=== PATIENT | female | born 1945 | race Caucasian/White ===

== ENCOUNTER 2019-11-13 08:42 | Day surgery (SDC) | payer BC ==
[~2019-11-13] VITALS: Ht 160 cm; Wt 75.3 kg
[~2019-11-13 08:42] MED LIST: ACET-1158 PO; ATOR10TA52 PO; B-COCAP34 PO; IPRA0.03; LEVO88TA4 PO; OMEP20TA PO
[2019-11-13] MEDS ORDERED: ceFAZolin 1GM/50ML 50 ML IV ONE (09:01)
[2019-11-13 09:39] LABS: INR 0.98 (0.9-1.15); Partial Thromboplastin Time 25.8 sec (23.64-32.05)
[2019-11-13] MEDS ORDERED: BUPIVACAINE HCL 0 ML ONE (09:46)
[2019-11-13] MEDS ORDERED: LIDOCAINE 1% HCL (LOCAL ANESTH.) INJ 20ML MDV ONE (09:46)
[2019-11-13] MEDS ORDERED: MIDAZOLAM HCL 1MG/1ML-2 ML VIAL ONE ×2 (10:12→10:42)
[2019-11-13] MEDS ORDERED: fentaNYL CITRATE 100 MCG/2 ML VL ONE ×2 (10:12→10:52)
[2019-11-13] MEDS ORDERED: ONDANSETRON HCL 4 MG/2 ML VIAL ONE (10:12)
[2019-11-13] MEDS ORDERED: PROPOFOL 10 MG/ML 20 ML IV ONE ×2 (10:12→10:45)
[2019-11-13] MEDS ORDERED: BUPIVACAINE 0.25% INJ 50ML VIAL ONE (10:36)
[2019-11-13] MEDS ORDERED: LIDOCAINE 1% (LOCAL ANESTH.) PF 5ml SDV ONE (10:39)
[2019-11-13] MEDS ORDERED: SUCCINYLCHOLINE CHLORIDE 20 MG/ML 10ML VIAL IV ONE (10:39)
[2019-11-13] MEDS ORDERED: METOCLOPRAMIDE HCL 5MG/ml INJ 2ml VIAL ONE (10:43)
[2019-11-13] MEDS ORDERED: ROCURONIUM 10MG/ML 10ML VIAL IV ONE (10:46)
[2019-11-13] MEDS ORDERED: NEOSTIGMINE 1 MG/ML INJ (10mg/10ML VIAL) ONE (11:04)
[2019-11-13] MEDS ORDERED: GLYCOPYRROLATE 0.2 MG/ML 1ML VIAL ONE (11:04)
[2019-11-13] MEDS ORDERED: NALOXONE HCL 0.4 MG/ML VIAL IV PRN (11:15)
[2019-11-13] MEDS ORDERED: ACCU-CHEK COMFORT CURVE STRIP VI ONE (11:15)
[2019-11-13] MEDS ORDERED: ONDANSETRON HCL 4 MG/2 ML VIAL IV PRN (11:15)
[2019-11-13] MEDS ORDERED: HYDROmorphone HCL 2 MG/ML VL IV PRN (11:15)
[2019-11-13 12:01] VITALS: BP 128/71
== END 2019-11-13 13:08 | disposition home or self-care (01) ==
LOC: SUR 08:42
PROVIDERS: ATTEND Orthopaedic Surgery Adult Reconstructive Orthopaedic Surgery
DX: M65.331 Trigger finger, right middle finger (principal); G47.33 Obstructive sleep apnea (adult) (pediatric); E11.22 Type 2 diabetes mellitus with diabetic chronic kidney disease; N18.3 Chronic kidney disease, stage 3 (moderate); K21.9 Gastro-esophageal reflux disease without esophagitis; G89.29 Other chronic pain; Z88.6 Allergy status to analgesic agent; Z88.5 Allergy status to narcotic agent; Z98.890 Other specified postprocedural states; Z79.899 Other long term (current) drug therapy; Z11.59 Encounter for screening for other viral diseases
CPT/HCPCS: 26055; 36415; 82962; 85610; 85730; J0330; J0690; J2001; J2250; J2704; J2765; J3010; J3490; U0003; J2405